=== PATIENT | male | born 1995 ===

== ENCOUNTER 2017-10-08 14:55 | Outpatient (RCR) | payer BC ==
[2017-09-10 15:31] VITALS: BP 130/69
--- NOTE | 2017-09-10 20:51 | ONCOLOGY HISTORY AND PHYSICAL ---
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 CHIEF COMPLAINT Patient feels well today. HISTORY OF PRESENT ILLNESS Terry is a pleasant 22-year-old male with a history of testicular cancer, who presents to my clinic today at the request of Dr. Vazquez with concern about a rising alpha-fetoprotein. To review, the patient had undergone a left orchiectomy on August 27, 2013. Surgical pathology had revealed initially a malignant germ cell neoplasm, thought initially to be a pure seminoma. There is no evidence of angiolymphatic invasion, and no tunica invasion. The spermatic cord was unremarkable. There was, however, some weak positive staining for mendiola cytokeratin, raising the concern that this was potentially not a pure seminoma. Surgical pathology was sent for another opinion to [facility] in [place], [place]. 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 The level of keratin positivity on CD30 expression in the sample strongly ruled against the possibility of seminoma, in the absence of expression of glypican-3 and beta HCG ruled against the possibility of a yolk sac or a choriocarcinoma component. The patient was then managed with active surveillance, and he was seen regularly, was very responsible with his followups, and had appropriate laboratory and imaging surveillance. There had not been a concern for a rising tumor marker, per his report, until recently. CT scans had been unremarkable. His most recent CT scan of the chest, abdomen, and pelvis was performed on July 28, 2017. This revealed no abnormality, and in particular no adenopathy in the abdomen or pelvis. Notably, his alpha-fetoprotein is now elevated at 6.1, just over the upper limit of normal, but his trend is one of worsening, with alpha- fetoprotein having been 3.7 on July 14, 2015, and 5.1 on May 07, 2016. Today, the patient reports that he is feeling just fine. He is a student at the [employer]. He recently met with Dr. Vazquez, and a exam was performed. There were no particular abnormalities noted on his physical exam. The tentative plan was made to have him follow up in a year after a CT scan, but he is here today to discuss the tumor marker abnormality. REVIEW OF SYSTEMS Otherwise negative, and all systems were reviewed. PAST MEDICAL HISTORY Testicular cancer, as above. Patient is otherwise healthy. PAST SURGICAL HISTORY As above. FAMILY HISTORY No significant family history. SOCIAL HISTORY The patient is a nondrinker and a nonsmoker. There is no history of illicit drug use. CURRENT MEDICATIONS Calcium and vitamin D. ALLERGIES 1. SULFADIAZINE. 2. Food allergy to HONEY. VITAL SIGNS Temperature is 98.6, blood pressure 130.69, heart rate is 93, respirations 16, oxygen saturation is 93% on room air. Weight is 82.2 kg. PHYSICAL EXAMINATION GENERAL: Patient is alert and oriented times three, in no apparent distress sitting in the exam room chair. He appears healthy. He is interactive and pleasant. HEENT: Exam reveals anicteric sclerae. NEUROLOGIC: Exam is nonfocal and his gait is normal. EXTREMITIES: Exam reveals no edema, clubbing or cyanosis. There is no concerning skin lesion. The rest of his physical exam is deferred for discussion today. LABORATORIES Please see history of present illness. IMAGING AND PATHOLOGY Please see history of present illness. 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 I had a good discussion with Terry today. Symptomatically, he continues to do quite well. He is busy as a student at the [employer]. We discussed his oncologic history, which is noted above. He is now almost four years out from the time of his orchiectomy for pure embryonal carcinoma. He had no adjuvant therapy for what appears to be stage IA disease. We spent time discussing his surveillance that has taken place prior to this visit. He has had, from the records that I can see, no tumor marker abnormality, and no CT scan abnormality in any of the studies performed. He does report, however, that he has had at least six to eight CTs performed in that period of time, and I do not have that many reports. Importantly, however, the most recent CT scan is unremarkable. I am also uncertain of any potential fluctuation in his tumor markers over time , and I would want to make sure that we aren't missing any data points. We will work on getting additional information, and I would also like for his imaging to be reviewed in our system, possibly reviewed at an upcoming tumor board. Importantly, he has had a gradual increase in his alpha-fetoprotein over time, dating back to 2016, as far as I have labs for review. His recent negative CT scan is certainly encouraging. He has no focal neurologic symptoms to suggest [employer] metastatic disease, for example. In addition, his recent reportedly unremarkable/non-concerning physical exam is reassuring. We discussed that if this trend in alpha-fetoprotein continues, and can be confirmed as a definitive trend, the obvious concern would be for recurrence of his testicular cancer. We discussed the implications of definitive recurrence, and that chemotherapy would be indicated based on the risk of his disease. I will plan to see Terry back in the next month after his studies can be obtained and reviewed further. The patient had several questions for me today, and I believe I answered all questions to his satisfaction. Thank you very much, Dr. Vazquez, for allowing me to take part in the care of this very pleasant patient. Please do not hesitate to call with any questions or concerns. ARIA
[~2017-10-08] VITALS: Ht 158.1 cm; Wt 81.4 kg
[~2017-10-08 14:55] MED LIST: CA C1TAB6 PO
[2017-10-08 15:02] VITALS: BP 121/78
[2017-10-08] MEDS ORDERED: MULT1CAP59 PO (15:05)
[2017-10-08] MEDS ORDERED: ASCO-182 PO (15:05)
[2017-10-08 16:21] LABS: PLATELET COUNT, AUTOMATED 301 K/uL (150-450)
--- NOTE | 2017-10-09 04:40 | ONCOLOGY FOLLOW UP NOTE ---
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 CHIEF COMPLAINT The patient feels well today, but he reports a bump on his buttock. HISTORY OF PRESENT ILLNESS Terry is here with his mother for followup today. Since our last visit, we have been allowed time to glean some additional records. Terry has no new complaints today, with the exception of what he feels might be a boil on his buttock. He reports no lumps or bumps of the remaining testicle, and no pain in this regard. His appetite is good, and his weight has been stable. He continues to attend classes at the [employer]. REVIEW OF SYSTEMS Otherwise negative, and all systems were reviewed. PAST MEDICAL HISTORY Testicular cancer, as above. Patient is otherwise healthy. PAST SURGICAL HISTORY As above. FAMILY HISTORY No significant family history. SOCIAL HISTORY The patient is a nondrinker and a nonsmoker. There is no history of illicit drug use. CURRENT MEDICATIONS Calcium and vitamin D. ALLERGIES 1. SULFADIAZINE. 2. Food allergy to HONEY. VITAL SIGNS Temperature is 97.3, blood pressure 121/78, heart rate is 95, respirations 16, oxygen saturation is 92% on room air. Weight is 81.4 kg. PHYSICAL EXAMINATION GENERAL: Patient is alert and oriented x 3, in no apparent distress sitting in the exam room chair. He is interactive and pleasant. He appears quite healthy. HEENT: Exam reveals anicteric sclerae. NEUROLOGIC: Exam is nonfocal and his gait is normal. EXTREMITIES: Exam reveals no edema, clubbing or cyanosis. There is no erythema or tenderness to palpation of the extremities. SKIN: Exam reveals no concerning rash or lesion. ASSESSMENT AND PLAN Stage I pure embryonal carcinoma of testicle, rising serum AFP. I had a good visit with Terry and his mother today. We spent time discussing his records from his prior surgery, pathology, laboratories and imaging. As discussed today , his imaging has been reviewed within the [facility] system, and there is no concern for recurrence on his recent CT scan. His laboratory trends over time are indicative of a very slowly rising alpha fetoprotein dating back to 2014. Again, his most recent AFP value was 6.1, which was just outside of the upper limit of normal based on the prior laboratory report. I have discussed his situation with colleagues, and the recommendation moving forward will be as follows: I have recommended that the patient go for repeat labs today, to include a CBC, CMP, LDH, beta HCG and alpha fetoprotein. I will add on a testosterone level, as well. If his alpha fetoprotein is again abnormal and increasing, we will have him go for a CT/PET scan, brain MRI and testicular ultrasound to evaluate again for any recurrence of his embryonal carcinoma. He is now four years out from his surgery. He would not be considered a late recurrence should this be detected, but we discussed that chemotherapy would be in order if there is definitive recurrence of his testicular cancer. He understands this. I will be back in touch with him with the results of his labs, and again we will move forward with imaging if there is persistently elevated alpha fetoprotein. The patient and his mother had several further questions for me today, and I believe I answered all of their questions to their satisfaction. I will plan to see him back in clinic in three weeks during my next visit to [facility] here in [place]. I spent a total of 30 minutes of time face to face with the patient and his mother today. 25 minutes of his was spent in direct counseling and coordination of care. ARIA
== END 2017-12-08 ==
LOC: ONC 14:55
PROVIDERS: ATTEND Internal Medicine Medical Oncology
DX: Z08 Encounter for follow-up examination after completed treatment for malignant neoplasm (principal); Z85.47 Personal history of malignant neoplasm of testis; R22.2 Localized swelling, mass and lump, trunk
CPT/HCPCS: 82040; 82105; 82247; 82310; 82374; 82435; 82565; 82728; 82947; 83540; 83550; 83615; 84075; 84132; 84155; 84295; 84403; 84450; 84460; 84520; 84702; 85025; 99212

== ENCOUNTER 2018-04-16 13:34 | Outpatient (RCR) | payer BC ==
[~2018-04-16 13:34] MED LIST changes: +ASCO-182 PO; +MULT1CAP59 PO
[2018-04-16 13:52] VITALS: BP 129/74
[2018-04-16 14:15] LABS: PLATELET COUNT, AUTOMATED 316 K/uL (150-450)
== END 2018-05-13 09:34 | disposition home or self-care (01) ==
LOC: SPU 13:34
PROVIDERS: ATTEND Podiatrist Foot & Ankle Surgery
DX: C62.90 Malignant neoplasm of unspecified testis, unspecified whether descended or undescended (principal)
CPT/HCPCS: 36415; 82040; 82105; 82247; 82310; 82374; 82435; 82565; 82728; 82947; 83540; 83550; 83615; 84075; 84132; 84155; 84295; 84403; 84450; 84460; 84520; 84702; 85025

== ENCOUNTER 2018-06-19 07:14 | Outpatient (RCR) | payer BC | END 2018-06-22 14:18 | disposition home or self-care (01) | LOC: SPU 07:14 | PROVIDERS: ATTEND Internal Medicine Medical Oncology | DX: Z02.9 Encounter for administrative examinations, unspecified (principal) ==